=== PATIENT | male | born 1990 | race Caucasian/White ===

== ENCOUNTER 2017-01-03 09:48 | Emergency (ER) | payer SELFPAY ==
[~2017-01-03] VITALS: Ht 177.8 cm; Wt 80.0 kg
[~2017-01-03 09:48] MED LIST: CEPH500C3 PO; NAPR-576 PO
[2017-01-03 09:52] VITALS: BP 197/111; PULSE 54; RESP 20; TEMP 99; O2SAT 98
[2017-01-03] MEDS ORDERED: SODIUM CHLORIDE 0.9% FLUSH 10 ML FLUSH IVF PRN (10:30)
--- NOTE | 2017-01-03 10:30 | PD ---
HPI Chief Complaint: Head Injury Time Seen by Provider: 10:04 Travel History International Travel<30 days: No Contact w/Intl Traveler<30days: No Traveled to known affect area: No History of Present Illness HPI Patient is a 26-year-old male presenting to emergency department for evaluation after he had a syncopal episode Saturday. Patient states he got up to go to the bathroom started to feel "funny" he then called his girlfriend and subsequently passed out hitting his head on the floor. He reports that since that time he's had a dull headache and has felt dizzy with visual changes. Patient also reports tremors in his hands and left upper quadrant abdominal pain gets worse after he eats. Patient states the abdominal pain is intermittent, dull. He did discuss this with his primary care provider who ordered labs 2 weeks ago. He states that this blood work was normal. Patient lost 100 pounds over the last year, he reports only eating one meal a day, he will drink coffee and juice and shay water in the morning. He denies any chest pain, shortness of breath, fever, chills, nausea, vomiting, diarrhea, constipation. He denies any significant past medical history otherwise. [facility] Past Medical History Medical History: Denies Significant Hx Past Surgical History Surgical History: No Previous Surgery Social History Alcohol Use: No Tobacco Use: No Substance Use: No Allergies-Medications (Allergen,Severity, Reaction): Coded Allergies: No Known Allergies (Verified , 11/26/14) Reported Meds & Prescriptions Reported Meds & Active Scripts Active Naproxen 500 Mg Tab 500 Mg PO Q12HR PRN Keflex (Cephalexin Monohydrate) 500 Mg Cap 500 Mg PO Q6HR 7 Days Review of Systems Except as stated in HPI: all other systems reviewed are Neg General / Constitutional: No: Fever, Chills Eyes: Positive: Visual changes HENT: Positive: Headaches Cardiovascular: No: Chest Pain or Discomfort Respiratory: No: Shortness of Breath Gastrointestinal: No: Nausea, Vomiting, Abdominal Pain Genitourinary: No: Frequency, Dysuria Musculoskeletal: No: Myalgias Neurologic: Positive: Dizziness, Syncope, Tremor, Headache Physical Exam Narrative GENERAL: Well-developed, well-nourished, alert male. Resting comfortably in no acute distress. SKIN: Warm and dry. No rash, ecchymosis, obvious lesions noted. HEAD: Atraumatic. Normocephalic. EYES: Pupils equal and round. No scleral icterus. No injection or drainage. ENT: No nasal bleeding or discharge. Mucous membranes pink and moist. NECK: Trachea midline. No JVD. CARDIOVASCULAR: Regular rate and rhythm. RESPIRATORY: No accessory muscle use. Clear to auscultation. Breath sounds equal bilaterally. GASTROINTESTINAL: Abdomen soft, non-tender, nondistended. Hepatic and splenic margins not palpable. Positive bowel sounds, no rebound, no guarding. MUSCULOSKELETAL: Extremities without clubbing, cyanosis, or edema. No obvious deformities. NEUROLOGICAL: Awake and alert. No obvious cranial nerve deficits. Motor grossly within normal limits. Five out of 5 muscle strength in the arms and legs. Normal speech. Fine tremor noted and hands bilaterally. No obvious focal neurological deficits. PSYCHIATRIC: Appropriate mood and affect; insight and judgment normal. Data Data Last Documented VS Vital Signs Date Time Temp Pulse Resp B/P (MAP) Pulse Ox O2 Delivery O2 Flow Rate FiO2 01/03/17 10:48 54 140/76 (97) 74 156/77 (103) 62 163/83 (109) 01/03/17 10:48 100 Room Air 01/03/17 09:52 99.0 20 Orders Orders Electrocardiogram (01/03/17 10:16) Complete Blood Count With Diff (01/03/17 10:16) Comprehensive Metabolic Panel (01/03/17 10:16) Ckmb (Isoenzyme) Profile (01/03/17 10:16) Troponin I (01/03/17 10:16) Ct Brain W/O Iv Contrast(Rout) (01/03/17 10:16) Ecg Monitoring (01/03/17 10:16) Iv Access Insert/Monitor (01/03/17 10:16) Oximetry (01/03/17 10:16) Sodium Chloride 0.9% Flush (Ns Flush) (01/03/17 10:30) Orthostatic Vital Signs (01/03/17 10:16) Lipase (01/03/17 10:16) CKMB (01/03/17 10:30) CKMB% (01/03/17 10:30) Labs Laboratory Tests Test 01/03/17 10:30 White Blood Count 10.1 TH/MM3 Red Blood Count 4.94 MIL/MM3 Hemoglobin 15.5 GM/DL Hematocrit 44.8 % Mean Corpuscular Volume 90.7 FL Mean Corpuscular Hemoglobin 31.4 PG Mean Corpuscular Hemoglobin Concent 34.6 % Red Cell Distribution Width 13.2 % Platelet Count 159 TH/MM3 Mean Platelet Volume 8.9 FL Neutrophils (%) (Auto) 71.9 % Lymphocytes (%) (Auto) 18.5 % Monocytes (%) (Auto) 8.0 % Eosinophils (%) (Auto) 1.1 % Basophils (%) (Auto) 0.5 % Neutrophils # (Auto) 7.3 TH/MM3 Lymphocytes # (Auto) 1.9 TH/MM3 Monocytes # (Auto) 0.8 TH/MM3 Eosinophils # (Auto) 0.1 TH/MM3 Basophils # (Auto) 0.0 TH/MM3 CBC Comment DIFF FINAL Differential Comment Blood Urea Nitrogen 6 MG/DL Creatinine 0.91 MG/DL Random Glucose 99 MG/DL Total Protein 7.3 GM/DL Albumin 4.1 GM/DL Calcium Level 9.0 MG/DL Alkaline Phosphatase 69 U/L Aspartate Amino Transf (AST/SGOT) 18 U/L Alanine Aminotransferase (ALT/SGPT) 30 U/L Total Bilirubin 0.5 MG/DL Sodium Level 141 MEQ/L Potassium Level 4.6 MEQ/L Chloride Level 106 MEQ/L Carbon Dioxide Level 27.6 MEQ/L Anion Gap 7 MEQ/L Estimat Glomerular Filtration Rate 99 ML/MIN Total Creatine Kinase 168 U/L Creatine Kinase MB 0.8 NG/ML Troponin I LESS THAN 0.02 NG/ML Lipase 87 U/L MDM Medical Decision Making Medical Screen Exam Complete: Yes Emergency Medical Condition: Yes Interpretation(s) Vital Signs Date Time Temp Pulse Resp B/P (MAP) Pulse Ox O2 Delivery O2 Flow Rate FiO2 01/03/17 09:52 99.0 54 20 197/111 (139) 98 Room Air Differential Diagnosis Hypoglycemia versus metabolic abnormality versus cardiac arrhythmia versus orthostatic hypotension versus concussion versus other Narrative Course Patient is a 26-year-old male presenting after a syncopal episode on Saturday morning. Patient has a markedly elevated blood pressure on arrival, he appears somewhat anxious regarding the diagnosis. He is concerned for cancer, he has been on the Internet googling his symptoms. Patient has no significant past medical history. He only eats one meal a day and his diet throughout the day consist of coffee and juices. The caffeine and sugar may be causing the tremors. Labs and imaging ordered and pending. IV access established, patient placed on telemetry monitoring and continuous pulse oximetry. Patient has no obvious focal deficits at this time. EKG shows sinus bradycardia with a rate of 44. Orthostatic vital signs are negative. CBC and chemistry have been reviewed and are unremarkable with no acute abnormalities identified Cardiac enzymes are negative [address] scan of the brain with no acute findings. Discussed patient's presentation and workup with my attending physician. Labs and imaging are reassuring, patient is encouraged to follow-up with his primary doctor. He was encouraged to eat regular meals throughout the day. He was encouraged to avoid excessive caffeine intake. He was advised to return to emergency department immediately for any new or worsening symptoms. Patient verbalized understanding of these instructions. Patient is stable for discharge. Diagnosis Primary Impression: Episode of syncope Qualified Codes: R55 - Syncope and collapse Referrals: Primary Care Physician 2 days Patient Instructions: General Instructions, Regular Diet (ED), Syncope (ED) Additional Instructions: Follow-up with your primary doctor Eat regular meals Return to ED with any new or worsening symptoms Med/Other Pt SpecificInfo: No Change to Meds Disposition: 01 DISCHARGE HOME Condition: Stable Kelsi Dueñas Jan 03, 2017 10:30
[2017-01-03 10:48] VITALS: BP_SYST 140; BP_SYST 156; BP_SYST 163; BP_DIAS 76; BP_DIAS 77; BP_DIAS 83; O2SAT 100
[2017-01-03 11:04] LABS: AUTOMATED NEUTROPHIL # 7.3 TH/MM3 (1.8-7.7); BASOPHIL % 0.5 % (0.0-2.0); EOSINOPHIL # 0.1 TH/MM3 (0-0.4); EOSINOPHIL % 1.1 % (0.0-4.0); HEMATOCRIT 44.8 % (39.0-51.0); HEMO FLAGS DIFF FINAL; LYMPH % 18.5 % (9.0-44.0); LYMPHOCYTE # 1.9 TH/MM3 (1.0-4.8); MEAN CELL VOLUME 90.7 FL (80.0-100.0); MEAN CORPUSCULAR HEMOGLOBIN 31.4 PG (27.0-34.0); MEAN CORPUSCULAR HGB CONC 34.6 % (32.0-36.0); NEUT % 71.9 % (16.0-70.0); PLATELET COUNT 159 TH/MM3 (150-450); RED BLOOD COUNT 4.94 MIL/MM3 (4.50-5.90); RED CELL DISTRIBUTION WIDTH 13.2 % (11.6-17.2); WHITE BLOOD COUNT 10.1 TH/MM3 (4.0-11.0)
[2017-01-03 11:12] LABS: ALT (GPT) 30 U/L (12-78); ANION GAP 7 MEQ/L (5-15); AST (GOT) 18 U/L (15-37); BICARBONATE 27.6 MEQ/L (21.0-32.0); BLOOD UREA NITROGEN 6 MG/DL (7-18); CHLORIDE 106 MEQ/L (98-107); GLOMERULAR FILTRATION RATE 99 ML/MIN (>89); POTASSIUM 4.6 MEQ/L (3.5-5.1); SODIUM (NA) 141 MEQ/L (136-145)
[2017-01-03 11:15] LABS: ALKALINE PHOSPHATASE 69 U/L (45-117); CREATINE KINASE 168 U/L (39-308); TOTAL BILIRUBIN ADULT 0.5 MG/DL (0.2-1.0)
[2017-01-03 11:27] LABS: CKMB 0.8 NG/ML (0.5-3.6)
--- NOTE | 2017-01-03 11:40 | RADRPT ---
EXAM DATE/TIME: 01/03/2017 11:21 [facility] COMPARISON: CT BRAIN W/O CONTRAST, April 17, 2009, 2:26. INDICATIONS : Syncope on Saturday, passed out and hit head. RADIATION DOSE: 56.35 CTDIvol (mGy) MEDICAL HISTORY : None SURGICAL HISTORY : None. ENCOUNTER: Initial ACUITY: 4 - 6 days PAIN SCALE: 0/10 LOCATION: cranial TECHNIQUE: Multiple contiguous axial images were obtained of the head. Using automated exposure control and adj ustment of the mA and/or kV according to patient size, radiation dose was kept as low as reasonably a chievable to obtain optimal diagnostic quality images. DICOM format image data is available electro nically for review and comparison. FINDINGS: CEREBRUM: The ventricles are normal for age. No evidence of midline shift, mass lesion, hemorrhage or acute in farction. No extra-axial fluid collections are seen. POSTERIOR FOSSA: The cerebellum and brainstem are intact. The 4th ventricle is midline. The cerebellopontine angle i s unremarkable. EXTRACRANIAL: The visualized portion of the orbits is intact. SKULL: The calvaria is intact. No evidence of skull fracture. CONCLUSION: Negative noncontrast CT. Adryan Shepard MD on January 03, 2017 at 11:38 Board Certified Radiologist. This report was verified electronically.
--- NOTE | 2017-01-03 11:56 | PD ---
Data Data Last Documented VS Vital Signs Date Time Temp Pulse Resp B/P (MAP) Pulse Ox O2 Delivery O2 Flow Rate FiO2 01/03/17 10:48 54 140/76 (97) 74 156/77 (103) 62 163/83 (109) 01/03/17 10:48 100 Room Air 01/03/17 09:52 99.0 20 Orders Orders Electrocardiogram (01/03/17 10:16) Complete Blood Count With Diff (01/03/17 10:16) Comprehensive Metabolic Panel (01/03/17 10:16) Ckmb (Isoenzyme) Profile (01/03/17 10:16) Troponin I (01/03/17 10:16) Ct Brain W/O Iv Contrast(Rout) (01/03/17 10:16) Ecg Monitoring (01/03/17 10:16) Iv Access Insert/Monitor (01/03/17 10:16) Oximetry (01/03/17 10:16) Sodium Chloride 0.9% Flush (Ns Flush) (01/03/17 10:30) Orthostatic Vital Signs (01/03/17 10:16) Lipase (01/03/17 10:16) CKMB (01/03/17 10:30) CKMB% (01/03/17 10:30) Labs Laboratory Tests Test 01/03/17 10:30 White Blood Count 10.1 TH/MM3 Red Blood Count 4.94 MIL/MM3 Hemoglobin 15.5 GM/DL Hematocrit 44.8 % Mean Corpuscular Volume 90.7 FL Mean Corpuscular Hemoglobin 31.4 PG Mean Corpuscular Hemoglobin Concent 34.6 % Red Cell Distribution Width 13.2 % Platelet Count 159 TH/MM3 Mean Platelet Volume 8.9 FL Neutrophils (%) (Auto) 71.9 % Lymphocytes (%) (Auto) 18.5 % Monocytes (%) (Auto) 8.0 % Eosinophils (%) (Auto) 1.1 % Basophils (%) (Auto) 0.5 % Neutrophils # (Auto) 7.3 TH/MM3 Lymphocytes # (Auto) 1.9 TH/MM3 Monocytes # (Auto) 0.8 TH/MM3 Eosinophils # (Auto) 0.1 TH/MM3 Basophils # (Auto) 0.0 TH/MM3 CBC Comment DIFF FINAL Differential Comment Blood Urea Nitrogen 6 MG/DL Creatinine 0.91 MG/DL Random Glucose 99 MG/DL Total Protein 7.3 GM/DL Albumin 4.1 GM/DL Calcium Level 9.0 MG/DL Alkaline Phosphatase 69 U/L Aspartate Amino Transf (AST/SGOT) 18 U/L Alanine Aminotransferase (ALT/SGPT) 30 U/L Total Bilirubin 0.5 MG/DL Sodium Level 141 MEQ/L Potassium Level 4.6 MEQ/L Chloride Level 106 MEQ/L Carbon Dioxide Level 27.6 MEQ/L Anion Gap 7 MEQ/L Estimat Glomerular Filtration Rate 99 ML/MIN Total Creatine Kinase 168 U/L Creatine Kinase MB 0.8 NG/ML Troponin I LESS THAN 0.02 NG/ML Lipase 87 U/L MDM Supervised Visit with MARY: Yes Narrative Course The history, exam, and medical decision-making in the associated mid-level provider note were completed with my assistance. I reviewed and agree with the findings presented. I attest that I had a [id number] encounter with the patient on the same day, and personally performed and documented my assessment and findings in the medical record. *My assessment and Findings: 18-year-old man with seems to be some anxiety, somatic preoccupation, here with some left-sided abdominal pain jitteriness shaking of his hands, and a syncopal episode. He looks well. EKG looks unremarkable. CT is negative. Recommend supportive treatment. He is unusual diarrhea is not eating for protracted periods. Recommend spacing more frequent smaller meals. Diagnosis Primary Impression: Episode of syncope Qualified Codes: R55 - Syncope and collapse Referrals: Primary Care Physician 2 days Patient Instructions: General Instructions, Syncope (ED), Regular Diet (ED) Additional Instruction: Follow-up with your primary doctor Eat regular meals Return to ED with any new or worsening symptoms Disposition: 01 DISCHARGE HOME Condition: Stable Nilton Dumont MD Jan 03, 2017 11:56
[2017-01-03 12:08] VITALS: BP 156/72
--- NOTE | 2017-01-03 17:42 | EKG ---
Date Performed: 01/03/2017 Time Performed: 10:30:25 PTAGE: 26 years EKG: SINUS BRADYCARDIA EARLY REPOLARIZATION BORDERLINE ECG NO PREVIOUS TRACING DOCTOR: Rainer Carlson Interpretating Date/Time 01/03/2017 17:38:13
== END 2017-01-03 12:10 | disposition home or self-care (01) ==
LOC: NEPD 09:48
DX: R55 Syncope and collapse (principal); R42 Dizziness and giddiness; R51 Headache; R00.1 Bradycardia, unspecified; F41.9 Anxiety disorder, unspecified; R19.7 Diarrhea, unspecified; I10 Essential (primary) hypertension; Z79.899 Other long term (current) drug therapy
CPT/HCPCS: 70450; 80053; 82550; 82552; 83690; 84484; 85025; 93005; 99285

== ENCOUNTER 2017-02-24 12:12 | Emergency (ER) | payer SELFPAY ==
[~2017-02-24] VITALS: Ht 175.3 cm; Wt 95.0 kg
[2017-02-24 12:15] VITALS: BP 169/80; PULSE 63; RESP 20; TEMP 98; O2SAT 100
[2017-02-24 12:36] VITALS: RESP 16; O2SAT 100
[2017-02-24] MEDS ORDERED: DEXAMETHASONE SOD PHOS 20 MG/5 ML VIAL IV PUSH ONE (12:45)
[2017-02-24] MEDS ORDERED: DIAZEPAM 5 MG TAB PO ONE (12:45)
[2017-02-24] MEDS ORDERED: KETOROLAC TROMETHAMINE 30 MG/ML (IVP) VIAL IV PUSH ONE (12:45)
[2017-02-24 13:01] LABS: AUTOMATED NEUTROPHIL # 7.1 TH/MM3 (1.8-7.7); BASOPHIL # 0.1 TH/MM3 (0-0.2); BASOPHIL % 0.6 % (0.0-2.0); EOSINOPHIL # 0.1 TH/MM3 (0-0.4); EOSINOPHIL % 0.9 % (0.0-4.0); HEMATOCRIT 45.2 % (39.0-51.0); HEMO FLAGS DIFF FINAL; LYMPH % 22.7 % (9.0-44.0); LYMPHOCYTE # 2.4 TH/MM3 (1.0-4.8); MEAN CELL VOLUME 90.2 FL (80.0-100.0); MEAN CORPUSCULAR HEMOGLOBIN 31.3 PG (27.0-34.0); MEAN CORPUSCULAR HGB CONC 34.7 % (32.0-36.0); MONO % 8.6 % (0.0-8.0); NEUT % 67.2 % (16.0-70.0); PLATELET COUNT 158 TH/MM3 (150-450); RED BLOOD COUNT 5.01 MIL/MM3 (4.50-5.90); RED CELL DISTRIBUTION WIDTH 13.3 % (11.6-17.2); WHITE BLOOD COUNT 10.6 TH/MM3 (4.0-11.0)
--- NOTE | 2017-02-24 13:03 | PD ---
HPI Chief Complaint: Medical Clearance Time Seen by Provider: 12:21 Travel History International Travel<30 days: No Contact w/Intl Traveler<30days: No Traveled to known affect area: No History of Present Illness HPI Patient is a 26 year old male who presents to the ER with multiple complaints. Patient reports that for the past 2 weeks, he has has neck tightness. Reports that he has been having trouble with ROM of his neck, reports that he did try taking a muscle relaxer prescribed by his girlfriend's team foreman who thought that he had muscle spasms, reports that his neck feels tight, reports that he has been having intermittent episodes of numbness and tingling down his left arm. Reports that when he has these symptoms, they last for a few minutes at a time and then completely resolved. Patient reports no symptoms at this time. Patient also concerned as he was watching TV last night, reports that he had 2 episodes of palpitations which lasted about 4 minutes. Reports that he did not have chest pain, reports that his heart felt as if it was racing and did he feel shortness of breath with it. Reports no chest pain or shortness of breath at this time. Reports that during this time, he felt a tingling sensation down his left arm. Reports that he immediately went and did some push up's which seemed to help with his symptoms. Reports that after a few minutes, palpitations and paresthesias resolved Patient reports that he did follow-up with his primary care doctor 2 weeks ago, reports that his blood pressure was high during the office visit, patient concerned that his blood pressure is high today and was not started on any antihypertensives. Patient denies any drug abuse or alcohol abuse. Patient reports that he is completely asystematic at this time. Reports that the only thing that is bothering him is his neck tightness. PFSH Past Medical History Medical History: Denies Significant Hx Past Surgical History Surgical History: No Previous Surgery Social History Alcohol Use: No Tobacco Use: No Substance Use: No Allergies-Medications (Allergen,Severity, Reaction): Coded Allergies: No Known Allergies (Verified , 02/24/17) Reported Meds & Prescriptions Reported Meds & Active Scripts Active Valium (Diazepam) 5 Mg Tab 5 Mg PO HS PRN Ibuprofen 600 Mg Tab 600 Mg PO Q6H PRN Review of Systems General / Constitutional: No: Fever Eyes: No: Visual changes HENT: Positive: Neck Stiffness, No: Headaches Cardiovascular: Positive: Palpitations, No: Chest Pain or Discomfort Respiratory: No: Shortness of Breath Gastrointestinal: No: Abdominal Pain Genitourinary: No: Dysuria Musculoskeletal: No: Pain Skin: No Rash Neurologic: Positive: Paresthesia, No: Weakness Psychiatric: No: Depression Endocrine: No: Polydipsia Hematologic/Lymphatic: No: Easy Bruising Physical Exam Narrative GENERAL: No acute distress, nontoxic SKIN: Focused skin assessment warm/dry. HEAD: Atraumatic. Normocephalic. EYES: Pupils equal and round. No scleral icterus. No injection or drainage. ENT: No nasal bleeding or discharge. Mucous membranes pink and moist. NECK: Trachea midline. No JVD. Patient with paraspinal muscle tenderness, patient with pain with ROM of neck, negative Kernig's and Brudzinski sign CARDIOVASCULAR: Regular rate and rhythm. No murmur appreciated. RESPIRATORY: No accessory muscle use. Clear to auscultation. Breath sounds equal bilaterally. GASTROINTESTINAL: Abdomen soft, non-tender, nondistended. Hepatic and splenic margins not palpable. MUSCULOSKELETAL: No obvious deformities. No clubbing. No cyanosis. No edema. NEUROLOGICAL: Awake and alert. No obvious cranial nerve deficits. Motor grossly within normal limits. Normal speech. PSYCHIATRIC: Anxious mood and affect; insight and judgment normal. Data Data Last Documented VS Vital Signs Date Time Temp Pulse Resp B/P (MAP) Pulse Ox O2 Delivery O2 Flow Rate FiO2 02/24/17 13:49 16 02/24/17 12:36 100 Room Air 02/24/17 12:15 98.0 63 Orders Orders Electrocardiogram (02/24/17 ) Basic Metabolic Panel (Bmp) (02/24/17 12:33) Complete Blood Count With Diff (02/24/17 12:33) Prothrombin Time / Inr (Pt) (02/24/17 12:33) Act Partial Throm Time (Ptt) (02/24/17 12:33) Chest, Single Ap (02/24/17 12:33) Ct Brain W/O Iv Contrast(Rout) (02/24/17 12:33) Ct Cerv Spine W/O Contrast (02/24/17 12:33) Electrocardiogram (02/24/17 12:33) Iv Access Insert/Monitor (02/24/17 12:33) Ecg Monitoring (02/24/17 12:33) Oximetry (02/24/17 12:33) Drug Screen, Random Urine (02/24/17 12:33) Dexamethasone Inj (Decadron Inj) (02/24/17 12:45) Diazepam (Valium) (02/24/17 12:45) Ketorolac Inj (Toradol Inj) (02/24/17 12:45) Labs Laboratory Tests Test 02/24/17 12:39 White Blood Count 10.6 TH/MM3 Red Blood Count 5.01 MIL/MM3 Hemoglobin 15.7 GM/DL Hematocrit 45.2 % Mean Corpuscular Volume 90.2 FL Mean Corpuscular Hemoglobin 31.3 PG Mean Corpuscular Hemoglobin Concent 34.7 % Red Cell Distribution Width 13.3 % Platelet Count 158 TH/MM3 Mean Platelet Volume 8.6 FL Neutrophils (%) (Auto) 67.2 % Lymphocytes (%) (Auto) 22.7 % Monocytes (%) (Auto) 8.6 % Eosinophils (%) (Auto) 0.9 % Basophils (%) (Auto) 0.6 % Neutrophils # (Auto) 7.1 TH/MM3 Lymphocytes # (Auto) 2.4 TH/MM3 Monocytes # (Auto) 0.9 TH/MM3 Eosinophils # (Auto) 0.1 TH/MM3 Basophils # (Auto) 0.1 TH/MM3 CBC Comment DIFF FINAL Differential Comment Prothrombin Time 10.3 SEC Prothromb Time International Ratio 0.9 RATIO Activated Partial Thromboplast Time 23.3 SEC Blood Urea Nitrogen 14 MG/DL Creatinine 0.95 MG/DL Random Glucose 87 MG/DL Calcium Level 9.1 MG/DL Sodium Level 139 MEQ/L Potassium Level 4.0 MEQ/L Chloride Level 107 MEQ/L Carbon Dioxide Level 26.8 MEQ/L Anion Gap 5 MEQ/L Estimat Glomerular Filtration Rate 94 ML/MIN [facility] Medical Decision Making Medical Screen Exam Complete: Yes Emergency Medical Condition: Yes Medical Record Reviewed: Yes Interpretation(s) EKG at 1236: NSR at 62bpm, qt/qtc: 388/394, no acute st or t wave changes Vital Signs Date Time Temp Pulse Resp B/P (MAP) Pulse Ox O2 Delivery O2 Flow Rate FiO2 02/24/17 12:25 16 02/24/17 12:15 98.0 63 20 169/80 (109) 100 Room Air Differential Diagnosis Differential includes anxiety reaction, torticollis, cervical radiculopathy, electrolyte abnormality, acs, arrhythmia Narrative Course 26-year-old male with multiple complaints. Reports that he has been having neck stiffness for the past 2 weeks. Symptoms are most likely torticollis in nature, as patient has restriction with paraspinal tenderness with range of motion to his cervical spine. Muscle relaxers as well as, IV Toradol and dexamethasone ordered. Patient at this time with normal neurological exam, patient with no deficits, patient with no tingling to his arms or legs this time, patient with no chest pain or shortness of breath. EKG as well as x-ray of the chest ordered. Basic blood work ordered to evaluate for electrolyte dysfunction. Vital Signs Date Time Temp Pulse Resp B/P (MAP) Pulse Ox O2 Delivery O2 Flow Rate FiO2 02/24/17 13:49 16 02/24/17 12:36 16 100 Room Air 02/24/17 12:25 16 02/24/17 12:15 98.0 63 20 169/80 (109) 100 Room Air Laboratory Tests Test 02/24/17 12:39 White Blood Count 10.6 TH/MM3 (4.0-11.0) Red Blood Count 5.01 MIL/MM3 (4.50-5.90) Hemoglobin 15.7 GM/DL (13.0-17.0) Hematocrit 45.2 % (39.0-51.0) Mean Corpuscular Volume 90.2 FL (80.0-100.0) Mean Corpuscular Hemoglobin 31.3 PG (27.0-34.0) Mean Corpuscular Hemoglobin Concent 34.7 % (32.0-36.0) Red Cell Distribution Width 13.3 % (11.6-17.2) Platelet Count 158 TH/MM3 (150-450) Mean Platelet Volume 8.6 FL (7.0-11.0) Neutrophils (%) (Auto) 67.2 % (16.0-70.0) Lymphocytes (%) (Auto) 22.7 % (9.0-44.0) Monocytes (%) (Auto) 8.6 % (0.0-8.0) Eosinophils (%) (Auto) 0.9 % (0.0-4.0) Basophils (%) (Auto) 0.6 % (0.0-2.0) Neutrophils # (Auto) 7.1 TH/MM3 (1.8-7.7) Lymphocytes # (Auto) 2.4 TH/MM3 (1.0-4.8) Monocytes # (Auto) 0.9 TH/MM3 (0-0.9) Eosinophils # (Auto) 0.1 TH/MM3 (0-0.4) Basophils # (Auto) 0.1 TH/MM3 (0-0.2) CBC Comment DIFF FINAL Differential Comment Prothrombin Time 10.3 SEC (9.8-11.6) Prothromb Time International Ratio 0.9 RATIO Activated Partial Thromboplast Time 23.3 SEC (24.3-30.1) Blood Urea Nitrogen 14 MG/DL (7-18) Creatinine 0.95 MG/DL (0.60-1.30) Random Glucose 87 MG/DL (74-106) Calcium Level 9.1 MG/DL (8.5-10.1) Sodium Level 139 MEQ/L (136-145) Potassium Level 4.0 MEQ/L (3.5-5.1) Chloride Level 107 MEQ/L (98-107) Carbon Dioxide Level 26.8 MEQ/L (21.0-32.0) Anion Gap 5 MEQ/L (5-15) Estimat Glomerular Filtration Rate 94 ML/MIN (>89) Last Impressions Head CT 02/24/171232 Signed Impressions: Service Date/Time: Friday, February 24, 2017 13:09 - CONCLUSION: Normal examination. Michael Barraza Jr., MD Chest X-Ray 02/24/171232 Signed Impressions: Service Date/Time: Friday, February 24, 2017 13:11 - CONCLUSION: Normal examination. Michael Barraza Jr., MD Cervical Spine CT 02/24/171232 Signed Impressions: Service Date/Time: Friday, February 24, 2017 13:09 - CONCLUSION: Normal examination. Michael Barraza Jr., MD Patient reevaluated, patient feeling much better at this time. I reviewed all labs and all studies with patient in detail. Patient with no emergency at this time, patient is safe to be discharged to home. Patient most likely with torticollis versus cervical muscle strain. Patient reports palpitation, electrolytes were within normal limits, x-ray of the chest was normal as well as EKG. Patient will follow-up with his primary care doctor and will return to emergency room as needed. Diagnosis Primary Impression: Torticollis Additional Impressions: Palpitations Anxiety reaction Patient Instructions: General Instructions Additional Instructions: Please provide patient with a copy of his studies and labs at discharge Please follow up with your primary care doctor in 2-3 days Return to ER as needed Return to ER if symptoms progress or worsen Med/Other Pt SpecificInfo: Prescription(s) given Scripts Diazepam (Valium) 5 Mg Tab 5 MG PO HS Y for SPASM, #10 TAB 0 Refills Prov: Keiry Salinas DO 02/24/17 Ibuprofen (Ibuprofen) 600 Mg Tab 600 MG PO Q6H Y for Pain/Inflammation, #40 TAB 0 Refills Prov: Keiry Salinas DO 02/24/17 Disposition: 01 DISCHARGE HOME Condition: Stable Keiry Salinas DO Feb 24, 2017 13:03
[2017-02-24 13:11] LABS: APTT (PATIENT) 23.3 SEC (24.3-30.1); INTERNATIONAL NORMALIZED RATIO 0.9 RATIO; PROTHROMBIN TIME - PATIENT 10.3 SEC (9.8-11.6)
--- NOTE | 2017-02-24 13:29 | RADRPT ---
EXAM DATE/TIME: 02/24/2017 13:09 [facility] COMPARISON: CT BRAIN W/O CONTRAST, January 03, 2017, 11:21. INDICATIONS : Left arm numbness, tingling, neck pain, heart palpatations. RADIATION DOSE: 34.40 CTDIvol (mGy) MEDICAL HISTORY : None SURGICAL HISTORY : None. ENCOUNTER: Initial ACUITY: 2 weeks PAIN SCALE: 6/10 LOCATION: cranial TECHNIQUE: Multiple contiguous axial images were obtained of the head. Using automated exposure control and adj ustment of the mA and/or kV according to patient size, radiation dose was kept as low as reasonably a chievable to obtain optimal diagnostic quality images. DICOM format image data is available electro nically for review and comparison. FINDINGS: CEREBRUM: The ventricles are normal for age. No evidence of midline shift, mass lesion, hemorrhage or acute in farction. No extra-axial fluid collections are seen. POSTERIOR FOSSA: The cerebellum and brainstem are intact. The 4th ventricle is midline. The cerebellopontine angle i s unremarkable. EXTRACRANIAL: The visualized portion of the orbits is intact. SKULL: The calvaria is intact. No evidence of skull fracture. CONCLUSION: Normal examination. Michael Barraza Jr., MD on February 24, 2017 at 13:24 Board Certified Radiologist. This report was verified electronically.
--- NOTE | 2017-02-24 13:30 | RADRPT ---
EXAM DATE/TIME: 02/24/2017 13:11 [facility] COMPARISON: No previous studies available for comparison. INDICATIONS : Left arm numbness, lower extremity numbness, and neck pain. Patient states no recent trauma or injury . MEDICAL HISTORY : None. SURGICAL HISTORY : None. ENCOUNTER: Initial ACUITY: 2 days PAIN SCORE: 7/10 LOCATION: Neck. FINDINGS: A single view of the chest demonstrates the lungs to be symmetrically aerated without evidence of mas s, infiltrate or effusion. The cardiomediastinal contours are unremarkable. Osseous structures are intact. CONCLUSION: Normal examination. Michael Barraza Jr., MD on February 24, 2017 at 13:28 Board Certified Radiologist. This report was verified electronically.
[2017-02-24 13:37] LABS: BICARBONATE 26.8 MEQ/L (21.0-32.0)
--- NOTE | 2017-02-24 13:37 | RADRPT ---
EXAM DATE/TIME: 02/24/2017 13:09 [facility] COMPARISON: No previous studies available for comparison. INDICATIONS : Left arm numbness, neck pain, tingling, heart palpatations. RADIATION DOSE: 17.55 CTDIvol (mGy) MEDICAL HISTORY : None SURGICAL HISTORY : None. ENCOUNTER: Initial ACUITY: 2 weeks PAIN SCALE: 7/10 LOCATION: neck TECHNIQUE: Volumetric scanning of the cervical spine was performed. Multiplanar reconstructions in the sagittal, coronal and oblique axial planes were performed. Using automated exposure control and adjustment o f the mA and/or kV according to patient size, radiation dose was kept as low as reasonably achievable to obtain optimal diagnostic quality images. DICOM format image data is available electronically f or review and comparison. FINDINGS: VERTEBRAE: Normal vertebral body height. ALIGNMENT: No evidence of subluxation. C2-C3: The bony spinal canal is normal in size. No evidence of disc bulge or herniation. The neural forami na are bilaterally patent. C3-C4: The bony spinal canal is normal in size. No evidence of disc bulge or herniation. The neural forami na are bilaterally patent. C4-C5: The bony spinal canal is normal in size. No evidence of disc bulge or herniation. The neural forami na are bilaterally patent. C5-C6: The bony spinal canal is normal in size. No evidence of disc bulge or herniation. The neural forami na are bilaterally patent. C6-C7: The bony spinal canal is normal in size. No evidence of disc bulge or herniation. The neural forami na are bilaterally patent. C7-T1: The bony spinal canal is normal in size. No evidence of disc bulge or herniation. The neural forami na are bilaterally patent. CONCLUSION: Normal examination. Michael Barraza Jr., MD on February 24, 2017 at 13:28 Board Certified Radiologist. This report was verified electronically.
[2017-02-24 13:49] VITALS: RESP 16
[2017-02-24] MEDS ORDERED: IBUP-232 PO (14:18)
[2017-02-24] MEDS ORDERED: DIAZ5 PO (14:18)
--- NOTE | 2017-02-25 12:51 | EKG ---
Date Performed: 02/24/2017 Time Performed: 12:36:22 PTAGE: 26 years EKG: Sinus rhythm When compared to previous tracing, sinus rate has increased. NORMAL ECG PREVIOUS TRACING : 01/03/2017 10.30 DOCTOR: Duncan Leonardo Interpretating Date/Time 02/25/2017 12:49:49
== END 2017-02-24 14:34 | disposition home or self-care (01) ==
LOC: NEPC 12:12
DX: M43.6 Torticollis (principal); R00.2 Palpitations; F41.1 Generalized anxiety disorder
CPT/HCPCS: 70450; 71010; 72125; 80048; 85025; 85610; 85730; 93005; 96374; 96375; 99285; J1100; J1885

== ENCOUNTER 2017-04-04 09:28 | Emergency (ER) | payer SELFPAY ==
[~2017-04-04 09:28] MED LIST changes: -CEPH500C3 PO; +DIAZ5 PO; +IBUP-232 PO; -NAPR-576 PO
[2017-04-04 09:37] VITALS: BP 186/114; PULSE 55; RESP 16; TEMP 98.7; O2SAT 100
--- NOTE | 2017-04-04 10:22 | PD ---
HPI Chief Complaint: Medical Clearance Time Seen by Provider: 10:03 Travel History International Travel<30 days: No Contact w/Intl Traveler<30days: No Traveled to known affect area: No History of Present Illness HPI patient has multiple complaints including enlarge lymph nodes, numbness to right foot, neck lumps..etc.... PFSH Social History Alcohol Use: No Tobacco Use: No Substance Use: No Allergies-Medications (Allergen,Severity, Reaction): Coded Allergies: No Known Allergies (Verified , 02/24/17) Reported Meds & Prescriptions Reported Meds & Active Scripts Active Valium (Diazepam) 5 Mg Tab 5 Mg PO HS PRN Ibuprofen 600 Mg Tab 600 Mg PO Q6H PRN Physical Exam Narrative GENERAL: SKIN: Warm and dry. HEAD: Atraumatic. Normocephalic. EYES: Pupils equal and round. No scleral icterus. No injection or drainage. ENT: No nasal bleeding or discharge. Mucous membranes pink and moist. NECK: Trachea midline. No JVD. CARDIOVASCULAR: Regular rate and rhythm. RESPIRATORY: No accessory muscle use. Clear to auscultation. Breath sounds equal bilaterally. GASTROINTESTINAL: Abdomen soft, non-tender, nondistended. MUSCULOSKELETAL: Extremities without clubbing, cyanosis, or edema. No obvious deformities. NEUROLOGICAL: Awake and alert. No obvious cranial nerve deficits. Motor grossly within normal limits. Five out of 5 muscle strength in the arms and legs. Normal speech. PSYCHIATRIC: Appropriate mood and affect; insight and judgment normal. Data Data Last Documented VS Vital Signs Date Time Temp Pulse Resp B/P (MAP) Pulse Ox O2 Delivery O2 Flow Rate FiO2 04/04/17 09:37 98.7 55 16 186/114 (138) 100 Orders Orders Ed Discharge Order (04/04/17 10:40) [facility] Medical Decision Making Medical Screen Exam Complete: Yes Emergency Medical Condition: No Medical Record Reviewed: Yes Narrative Course pt had ct head/neck done already on feb 24 for same complaints which were negative, cmp, cbc, full thyroid profile which was negative. pcp is also doing additional testing however patient doesn't feel like enough is being done. I advised referral to neuro and further testing for paresthesia to be done by dr taveras...otherwise healthy fit/muscular young male will be referred for further testing. Diagnosis Primary Impression: Paresthesia Referrals: Lala Taveras MD Patient Instructions: General Instructions, Paresthesia (ED) Additional Instructions: please follow up with neurologist for additional testing of your symptoms, bring your paper work to demonstrate that CT head, CT neck, cbc, cmp, thyroid profile have all been done already and neurologist can further evaluate heavy metal vs peripheral neuritis of other causes. thank you for choosing [facility] Disposition: 01 DISCHARGE HOME Condition: Stable Cordell Toro MD Apr 04, 2017 10:22
[2017-04-04 11:05] VITALS: BP 123/81; TEMP 97.8
== END 2017-04-04 11:05 | disposition home or self-care (01) ==
LOC: NEPD 09:28
DX: R20.2 Paresthesia of skin (principal); R20.0 Anesthesia of skin; R22.1 Localized swelling, mass and lump, neck
CPT/HCPCS: 99282